=== PATIENT | female | born 1985 | race Caucasian/White ===

== ENCOUNTER 2017-06-26 13:05 | Emergency (ER) | payer SELFPAY ==
[2017-06-26 13:51] VITALS: BP 111/81
== END 2017-06-26 18:00 | disposition left against medical advice (07) ==
LOC: ED 13:05
DX: R10.9 Unspecified abdominal pain (principal); Z53.21 Procedure and treatment not carried out due to patient leaving prior to being seen by health care provider

== ENCOUNTER 2018-01-16 17:00 | Inpatient (IN) | payer MEDICAID ==
[2018-01-16] MEDS ORDERED: LACTATED RINGERS 1,000 ML ONE ×2 (17:34→20:45)
[2018-01-16 17:49] LABS: Bilirubin,Urine NEG (Negative); Blood,Urine NEG (Negative); Color,Urine Yellow (Yellow); Mucus,Urine FEW /HPF
[2018-01-16] MEDS ORDERED: BICITRA PO ONE (21:05)
[2018-01-16] MEDS ORDERED: PEPCID IV ONE (21:05)
[2018-01-16] MEDS ORDERED: REGLAN IV ONE (21:05)
--- NOTE | 2018-01-16 21:13 | History and Physical Report ---
History of Present Illness Date of examination: 01/16/18 Date of admission: 01/16/18 20:44 Chief complaint: Persistent regular contractions, previuos c/s History of present illness: Past History : 2 Term Births: 1 Living Children: 1 Para: 1 # 1 Delivery date: 2007 Weeks Gestation: 38 Delivery type: Delivery location: [place] [id number] Infant Sex: Male weight: 6lb Comments: distress Past Medical History: Negative Past Medical History Past Surgical History: Past Medical History Surgery (Non-obstetrician gynecologist): Abnormal PAP: negative [place] Exposure: negative Infertility: negative Uterine Anomaly: negative Uterine Surgery (not C/S): negative Other Gynecologic Problems: negative Medical History Comments: neg Family Hx: MGM-? cancer Social Hx: single no e/t/d [employer] Infection History Hx of STD: none Partner hx. of genital herpes: no Rash, Viral, or Febrile illness since last LMP? no Varicella/Chicken Pox Status: Previous Disease Genetic History Congenital Heart Defect: Mom: no Dad: no Christian Disease: Mom: no Dad: no Thalassemia Mom: no Dad: no Neural Tube Defect Mom: no Dad: no Down's Syndrome Mom: no Dad: no Gael-Sachs Mom: no Dad: no Sickle Cell Disease/Trait Mom: no Dad: no Hemophilia Mom: no Dad: no Muscular Dystrophy Mom: no Dad: no Cystic Fibrosis Mom: no Dad: no Cuong Chorea Mom: no Dad: no Mental Retardation Mom: no Dad: no Fragile X Mom: no Dad: no Other Genetic/Chromosomal Disorder Mom: no Dad: no Child w/other defect Mom: no Dad: no Enviromental Exposures Xray Exposure: no Medication, drug, or alcohol use since LMP: no Chemical/Other Exposure: no Exposure to Cat Liter: no Hx of Parvovirus (Fifth Disease): no Occupational Exposure to Children: none Active Medications (reviewed today): None Current Allergies (reviewed today): No known allergies Past History - Obstetrical History Expected Date of Delivery: 01/25/18 Actual Gestation: 38 Week(s) 5 Day(s) : 2 Medications and Allergies Allergies Allergy/AdvReac Type Severity Reaction Status Date / Time No Known Allergies Allergy Verified 01/16/18 17:11 Home Medications Medication Instructions Recorded Confirmed Last Taken Type No Known Home Medications [No 01/16/18 01/16/18 Unknown History Reported Home Medications] Active Meds: Active Medications Citric Acid/Sodium Citrate (Bicitra) 30 ml PO ONCE ONE Stop: 01/16/18 21:06 Famotidine (Pepcid) 20 mg IV ONCE ONE Stop: 01/16/18 21:06 Cefazolin Sodium (Ancef/Sterile Water 2 Gm/20 Ml) 2 gm in 20 mls @ 80 mls/hr IV PREOP NR; Protocol Lactated Ringer's (Lactated Ringers) 1,000 mls @ 2,250 mls/hr IV PREOP SARMAD Stop: 01/17/18 22:27 Oxytocin/Sodium Chloride (Pitocin/Ns 20 Unit/1000ml Drip) 20 units in 1,000 mls @ 0 mls/hr IV TITR SARMAD Metoclopramide HCl (Reglan) 10 mg IV ONCE ONE Stop: 01/16/18 21:06 Review of Systems All systems: negative Genitourinary: contractions - Vital Signs Vital signs: Vital Signs Pulse BP 82 122/79 01/16/18 17:18 01/16/18 17:18 Temp Pulse Resp BP Pulse Ox 97.7 F 82 20 122/79 01/16/18 17:25 01/16/18 17:25 01/16/18 17:25 01/16/18 17:25 - Physical Exam Breasts: Positive: deferred Lungs: Positive: Normal air movement Abdomen: Positive: soft. Negative: tenderness Uterus: Positive: enlarged - Obstetrical FHR: category 1 Uterine Contraction Monitor Mode: External Uterine Contraction Pattern: Regular Results All other labs normal. Assessment and Plan Will proceed with c/s. Options with riskd reviewd, questions answered, she voiced understanding and desires to proceed with c/s. Consents reviewed and signed - Patient Problems (1) 38 weeks gestation of Current Visit: Yes Status: Acute (2) Uterine contractions Current Visit: Yes Status: Acute (3) Maternal care due to low transverse uterine scar from previous delivery Current Visit: Yes Status: Acute
[2018-01-16] MEDS ORDERED: DILAUDID IV PRN (21:22)
--- NOTE | 2018-01-16 21:22 | Anesthesia Day of Surgery ---
Anesthesia Day of Surgery - Day of Surgery Patient Examined: Yes Patient H&P Reviewed: Yes Patient is NPO: Yes
--- NOTE | 2018-01-16 21:22 | Anesthesia Consultation ---
Anesthesia Consult and Med Hx Date of service: 01/16/18 - Airway Anesthetic Teeth Evaluation: Good ROM Head & Neck: Adequate Mental/Hyoid Distance: Adequate Mallampati Class: Class II Intubation Access Assessment: Probably Good - Pulmonary Exam CTA: Yes - Cardiac Exam Cardiac Exam: RRR - Pre-Operative Health Status ASA Pre-Surgery Classification: ASA2 Proposed Anesthetic Plan: Epidural, Spinal - Pulmonary Hx Asthma: No - Cardiovascular System Hx Hypertension: No - Central Nervous System Hx Seizures: No Hx Psychiatric Problems: No - Endocrine Hx Renal Disease: No Hx Hypothyroidism: No Hx Hyperthyroidism: No - Hematic Hx Anemia: No Hx Sickle Cell Disease: No - Other Systems Hx Alcohol Use: No
[2018-01-16 22:00] LABS: Basophils % (Auto) 0.3 % (0.0-1.8); Eosinophils # (Auto) 0.1 K/mm3 (0.0-0.4); Eosinophils % (Auto) 1.1 % (0.0-4.3); Hematocrit 29.6 % (30.3-42.9); Hemoglobin 10.1 gm/dl (10.1-14.3); Lymphocytes # (Auto) 1.7 K/mm3 (1.2-5.4); Lymphocytes % (Auto) 23.4 % (13.4-35.0); Mean Corpuscular HGB Conc 34 % (30-34); Mean Corpuscular Hemoglobin 31 pg (28-32); Mean Corpuscular Volume 90 fl (79-97); Monocytes # (Auto) 0.7 K/mm3 (0.0-0.8); Monocytes % (Auto) 9.9 % (0.0-7.3); Platelet Count 120 K/mm3 (140-440); Red Blood Count 3.28 M/mm3 (3.65-5.03); Red Cell Distribution Width 14.7 % (13.2-15.2)
[2018-01-16] MEDS ORDERED: ANCEF/STERILE WATER 2 GM/20 ML 2 GM/20 ML SYRINGE IV NR (22:00)
[2018-01-16] MEDS ORDERED: LACTATED RINGERS 1,000 ML IV SCH (22:00)
[2018-01-16] MEDS ORDERED: PITOCin/NS 20 UNIT/1000ML DRIP 20 UNITS/1,000 ML BAG IV SCH (22:00)
[2018-01-16] MEDS ORDERED: ANCEF/STERILE WATER 2 GM/20 ML IV ONE (22:11)
[2018-01-16] MEDS ORDERED: MORPHINE ONE (22:13)
[2018-01-16] MEDS ORDERED: NACL 0.9% IR ONE (22:39)
[2018-01-16] MEDS ORDERED: WATER FOR IRRIG STERILE IR ONE (22:39)
[2018-01-16] MEDS ORDERED: VERSED ONE (22:58)
[2018-01-16] MEDS ORDERED: TORADOL ONE (23:15)
[2018-01-16] MEDS ORDERED: BENADRYL IV PRN (23:31)
--- NOTE | 2018-01-16 23:33 | Post Anesthesia Evaluation ---
- Post Anesthesia Evaluation Patient Participated: Yes Airway Patent: Yes Stable Respiratory Function: Yes Nausea/Vomiting: No Temp > 96.8F: Yes Pain Manageable: Yes Adequeate Hydration: Yes Anesthesia Complications: No Block Receding Appropriately: Yes Patient on Ventilator: No
--- NOTE | 2018-01-16 23:44 | Operative Report ---
Operative Report Operative Report: Date: 01/16/2018 Preoperative diagnosis: 1. Intrauterine at 38 weeks gestation 2. Previous delivery 3. Early labor 4. Desires repeat Postoperative diagnosis: 1. Intrauterine at 38 weeks gestation 2. Previous delivery 3. Early labor 4. Desires repeat Procedure: Low uterine transverse incision for delivery Surgeon: Wendy Sparks MD [employer] Employee: Florence Silver CST Anesthesia: Combined spinal epidural Anesthesiologist: Jace Stanley M.D. Estimated blood loss: 500 mL Urine out: 200 mL clear yellow Findings: Live born male infant. Weight 7 lbs. 6 oz. Apgars 8 at 1 minute and 9 at 5 minutes. Uterus grossly normal, tubes grossly normal, ovaries grossly normal. Procedure: After risk, benefits, complications, consequences and alternatives for this procedure were discussed with patient and consents were reviewed and signed, she was taken to the OR where combined spinal epidural anesthesia was placed. She was then placed in the left lateral tilt position, and prepped and draped in the usual sterile fashion. Timeout was performed, and an appropriate level of anesthesia was noted, a Pfannenstiel incision was made and extended to the fascia which was incised and extended in the lateral directions. The overlying fascia was sharply dissected away from the underlying rectus muscles in the superior and inferior directions. The midline was entered bluntly. The vesicouterine fold was incised and with blunt dissection the bladder flap was created. A transverse incision was made in the lower uterine segment and extended in superiolateral direction with finger fractionation. Clear fluid was noted. The was delivered from cephalic OP position. Mouth and nose were bulb suctioned. Spontaneous cry and excellent tone were noted. Cord was doubly clamped and cut. The was given to /resuscitation team present. The placenta was manually extracted. The uterus was then exteriorized and cleared of any further products of conception or placental tissue. The incision was reapproximated using 0 Vicryl in a running interlocking stitch. Grossly normal uterus, tubes and ovaries were noted. Once hemostasis was noted, the uterus was allowed back into the pelvic cavity. The pelvis was irrigated with warm normal saline. Again hemostasis was noted . Surgicel applied for further hemostasis. Interceed was then placed to prevent adhesions. Then attention was turned to the rectus muscles. The rectus muscles reapproximated using 0 Vicryl in a simple interrupted stitch x 3. Once hemostasis was noted, the fascia was reapproximated using 0 Vicryl running stitch fashion. Once hemostasis was noted skin incision was reapproximated using 4-0 Vicryl on a Giancarlo needle in a subcuticular manner. Counts were correct 3. Patient tolerated procedure well state recovery room in stable condition.
[2018-01-16] MEDS ORDERED: SODIUM CHLORIDE FLUSH SYRINGE 10 ML IV PRN (23:45)
[2018-01-17] MEDS ORDERED: PHENERGAN PR PRN (01:16)
[2018-01-17] MEDS ORDERED: TYLENOL PO PRN (01:16)
[2018-01-17] MEDS ORDERED: NARCAN 0.4 MG/1 ML IV PRN (01:16)
[2018-01-17] MEDS ORDERED: MORPHINE IV PRN (01:16)
[2018-01-17] MEDS ORDERED: HEMABATE IM PRN (01:16)
[2018-01-17] MEDS ORDERED: LANSINOH TP PRN (01:16)
[2018-01-17] MEDS ORDERED: PITOCin/NS 20 UNIT/1000ML DRIP 20 UNITS/1,000 ML BAG IV SCH (01:16)
[2018-01-17] MEDS ORDERED: MYLICON PO PRN (01:16)
[2018-01-17] MEDS ORDERED: MILK OF MAGNESIA PO PRN (01:16)
[2018-01-17] MEDS ORDERED: SODIUM CHLORIDE FLUSH SYRINGE 10 ML IV PRN (01:16)
[2018-01-17] MEDS ORDERED: ZOFRAN IV PRN (01:16)
[2018-01-17] MEDS ORDERED: CYTOTEC PR PRN (01:16)
[2018-01-17] MEDS ORDERED: D5LR 1,000 ML IV SCH (01:16)
[2018-01-17] MEDS ORDERED: TUCKS PAD TP PRN (01:16)
[2018-01-17] MEDS ORDERED: METHERGINE IM PRN (01:16)
[2018-01-17] MEDS ORDERED: TYLENOL PR PRN (01:16)
[2018-01-17] MEDS: ANCEF/NS 1 GM/50 ML 1 GM/50 ML BAG IV SCH ×2 (05:10→13:20)
[2018-01-17] MEDS: TORADOL IV PRN (09:59)
[2018-01-17 11:59] LABS: Hematocrit 28.8 % (30.3-42.9); Hemoglobin 9.5 gm/dl (10.1-14.3)
--- NOTE | 2018-01-17 12:46 | Progress Note ---
Assessment and Plan - Patient Problems (1) delivery delivered Current Visit: Yes Status: Acute Plan to address problem: Postoperative day #1. Discuss operative findings with patient and questions answered. Patient without fever. We'll ambulate in halls. We will continue routine postoperative care. Patient's postoperative hematocrit 28.8 Subjective - Subjective Date of service: 01/17/18 Patient reports: nauseated, no voiding normally (Cai still in place), no flatus Kenna: doing well Objective - Vital Signs Latest vital signs: Vital Signs Temp Pulse Resp BP BP Pulse Ox 01/17/18 08:03 97.9 F 56 L 18 100/45 01/17/18 04:00 97.9 F 58 L 18 109/51 98 01/17/18 00:45 96.8 F L 53 L 16 120/62 01/17/18 00:44 96.8 F L 01/17/18 00:30 49 L 14 128/45 99 01/17/18 00:15 19 122/75 100 01/17/18 00:00 54 L 14 104/65 100 01/16/18 23:45 54 L 18 94/58 100 01/16/18 23:40 52 L 11 L 105/61 100 01/16/18 23:35 61 17 103/61 99 01/16/18 23:30 97.6 F 62 22 110/72 98 01/16/18 17:25 97.7 F 82 20 122/79 01/16/18 17:18 82 122/79 Intake and Output 01/16/18 01/17/18 01/17/18 22:59 06:59 14:59 Intake Total 200 1240 240 Output Total 200 Balance 200 1040 240 Intake: IV 200 1000 Oral 240 240 Output: Urine 200 Other: Total, Intake Amount 240 240 Weight 144 lb Estimated Blood Loss 500 - Exam Breasts: Present: deferred Cardiovascular: Present: Regular rate Lungs: Present: Normal air movement Abdomen: Present: normal appearance, soft Uterus: Present: firm, fundal height at umbilicus Extremities: Present: edema Incision: Present: dressed - Labs Labs: Abnormal lab results 01/16/18 01/17/18 Range/Units 20:00 11:34 RBC 3.28 L (3.65-5.03) M/mm3 Hgb 9.5 L (10.1-14.3) gm/dl Hct 29.6 L 28.8 L (30.3-42.9) % Plt Count 120 L (140-440) K/mm3 [place] % (Auto) 9.9 H (0.0-7.3) %
[2018-01-17] MEDS: PERCOCET 5/325 PO PRN (18:30)
[2018-01-18] MEDS: PERCOCET 5/325 PO PRN ×2 (02:01→14:20)
[2018-01-18] MEDS ORDERED: BOOSTRIX IM ONE (06:00)
[2018-01-18] MEDS: TORADOL IV PRN (07:53)
[2018-01-18] MEDS ORDERED: MOTRIN ONE (14:07)
[2018-01-18] MEDS ORDERED: MOTRIN PO PRN (14:17)
--- NOTE | 2018-01-18 15:38 | Discharge Summary ---
Providers - Providers Date of Admission: 01/16/18 20:44 Date of discharge: 01/18/18 (pt desires d/c ) Attending physician: ZHANNA MOORE 01/17/18 01:16 Consult to Library Associate [CONS] Routine Reason For Exam: Primary care physician: ZHANNA MOORE Hospitalization Reason for admission: active labor Delivery: Procedure: repeat low transverse Episiotomy: none Laceration: none Incision: normal, dry, intact Other procedures: none complications: none Discharge diagnosis: IUP at term delivered [place] baby: male Hospital course: uncomplicated repeat section Pt w/o complaint Desires d/c VSS FF below umb Lochia scant Incision D&I H&H stable No s/sx of anemia Doing well s/p section P: d/c today with instructions RTO 1 week for post op and circ. RX provided at d/c Condition at discharge: Good Disposition: - TO HOME OR SELFCARE - Discharge Diagnoses (1) delivery delivered Status: Acute Comment: RTO 1 week for postop care Plan - Discharge Medications Prescriptions: RX: Ibuprofen [Motrin 800 MG tab] 800 mg PO TID PRN #30 tablet PRN Reason: Pain Lidocain2.5%/Prilocai2.5% [Emla] 5 gm TP ONCE #1 tube RX: oxyCODONE /ACETAMINOPHEN [Percocet 5/325 mg] 1 - 2 tab PO Q4HR PRN #20 tablet PRN Reason: Pain - Provider Discharge Summary Activity: routine, no sex for 6 weeks, no heavy lifting 4 weeks, no strenuous exercise Diet: routine Instructions: routine Additional instructions: [] Smoking cessation referral if applicable(refer to patient education folder for contact #) [] Refer to [facility] Booklet Call your doctor immediately for: * Fever > 100.5 * Heavy vaginal bleeding ( >1 pad per hour) * Severe persistent headache * Shortness of breath * Reddened, hot, painful area to leg or breast * Drainage or odor from incision. * Keep incision clean and dry at all times and follow doctor's instructions regarding bathing/showering - Follow up plan Follow up: ZHANNA MOORE MD [Primary Care Provider] - 7 Days (Congratulations! Please call [phone] to schedule your postoperative visit and your son's circumcision in 1 week. Bring the EMLA cream with you to his visit. Do NOT use at home. Take medications as prescribed. Call with concerns.)
[2018-01-18 16:11] VITALS: BP 131/75
== END 2018-01-18 17:45 | disposition home or self-care (01) | DRG 766 ==
LOC: TRG 17:00 → APU 20:44 → OB 01-17 01:17
PROVIDERS: ADMIT Obstetrics & Gynecology; ATTEND Obstetrics & Gynecology
PROC: 10D00Z1 Extraction of Products of Conception, Low, Open Approach (ICD-10-PCS; principal; 2018-01-16)
DX: O34.211 Maternal care for low transverse scar from previous cesarean delivery (principal); O62.9 Abnormality of forces of labor, unspecified; Z3A.38 38 weeks gestation of pregnancy; Z37.0 Single live birth
CPT/HCPCS: 36415; 81001; 85014; 85018; 85025; 86592; 86850; 86900; 86901; A6250; C1765; J0690; J1885; J2250; J2270; J2405; J2590; J2765; J7120; J7121